=== PATIENT | female | born 1985 | race Hispanic/Latino ===

== ENCOUNTER 2017-11-25 00:42 | Emergency (ER) | payer BC ==
[2017-11-25 00:57] VITALS: BMI 22.7
[2017-11-25 01:00] VITALS: BP 130/84; PULSE 72; RESP 18; TEMP 97.9; O2SAT 96
--- NOTE | 2017-11-25 01:36 | ED PDOC ---
HPI: Abdomen Time Seen by Provider: 11/25/17 01:01 Chief Complaint (Nursing): GI Problem Chief Complaint (Provider): GI Problem History Per: Patient History/Exam Limitations: no limitations Onset/Duration Of Symptoms: Hrs Current Symptoms Are (Timing): Still Present Additional Complaint(s): 32 y/o female with no PMHx presents to the ED for evaluation of multiple episod es of non-bloody, non-bilious vomiting, onset 10 PM. Patient reports last episode of vomiting was 2 minutes ago in the ER. Patient additionally reports of traveling to [place] approximately one week ago. Patient is otherwise healthy and denies abnormal stools, abdominal pain, urinary symptoms, fevers and sick contacts. PMD: None Provided Past Medical History Reviewed: Historical Data, Nursing Documentation, Vital Signs Vital Signs: Last Vital Signs Temp 97.9 F 11/25/17 00:57 Pulse 72 11/25/17 00:57 Resp 18 11/25/17 00:57 BP 130/84 11/25/17 00:57 Pulse Ox 96 11/25/17 00:57 - Medical History PMH: No Chronic Diseases - Surgical History Surgical History: No Surg Hx - Family History Family History: States: Unknown Family Hx - Home Medications Home Medications: Ambulatory Orders Medication Instructions Recorded Ondansetron ODT [Zofran ODT] 4 mg PO Q8 PRN #12 odt 11/25/17 - Allergies Allergies/Adverse Reactions: Allergies Allergy/AdvReac Type Severity Reaction Status Date / Time No Known Allergies Allergy Verified 11/25/17 00:57 Review of Systems ROS Statement: Except As Marked, All Systems Reviewed And Found Negative Gastrointestinal: Positive for: Vomiting Physical Exam - Reviewed Nursing Documentation Reviewed: Yes Vital Signs Reviewed: Yes - Physical Exam Appears: Positive for: No Acute Distress Head Exam: Positive for: ATRAUMATIC, NORMOCEPHALIC Skin: Positive for: Normal Color, Warm, Dry Eye Exam: Positive for: Normal appearance, EOMI, PERRL ENT: Positive for: Normal ENT Inspection Neck: Positive for: Normal, Painless ROM Cardiovascular/Chest: Positive for: Regular Rate, Rhythm. Negative for: Murmur Respiratory: Positive for: Normal Breath Sounds. Negative for: Respiratory Distress Gastrointestinal/Abdominal: Positive for: Normal Exam, Soft. Negative for: Tenderness Back: Positive for: Normal Inspection. Negative for: L CVA Tenderness, R CVA Tenderness, Vertebral Tenderness Extremity: Positive for: Normal ROM. Negative for: Pedal Edema, Deformity Neurologic/Psych: Positive for: Alert, Oriented. Negative for: Motor/Sensory Deficits - ECG O2 Sat by Pulse Oximetry: 96 (RA) Pulse Ox Interpretation: Normal Medical Decision Making Medical Decision Making: Time: 107 A/P: 32 y/o female well appearing with gastroenteritis -- Will try Ondansetron ODT with re-evaluation. -- ED Urine Dipstick -- ED Urine -- Ondansetron ODT 8 mg PO 200 --Patient vomited after ODT --IV zofran and fluids ordered 400 --Patient tolerating food and liquids --Feels much better --Very well appearing Scribe Attestation: Documented by Jalen Brasher, acting as a scribe for Jacky Joiner MD. Provider Scribe Attestation: All medical record entries made by the Scribe were at my direction and personally dictated by me. I have reviewed the chart and agree that the record accurately reflects my personal performance of the history, physical exam, medical decision making, and the department course for this patient. I have also personally directed, reviewed, and agree with the discharge instructions and disposition. Disposition - Clinical Impression Clinical Impression: Gastroenteritis - Disposition Referrals: Kasie Cardozo [Outside] Disposition: Routine/Home Disposition Time: 04:00 Condition: STABLE Prescriptions: Ondansetron ODT [Zofran ODT] 4 mg PO Q8 PRN #12 odt PRN Reason: Nausea/Vomiting Instructions: Viral Gastroenteritis Forms: Kasie Miller (Citizen Of [place])
[2017-11-25] MEDS ORDERED: Sodium Chloride 0.9% 1,000 ML IV STA (01:51)
== END 2017-11-25 04:11 | disposition home or self-care (01) ==
LOC: H.ER 00:42
DX: K52.9 Noninfective gastroenteritis and colitis, unspecified (principal)
CPT/HCPCS: 96361; 96374; 99284; J2405; J7030